=== PATIENT | female | born 1950 | race Caucasian/White ===

== ENCOUNTER → 2019-12-18 | Outpatient (CLI) | payer MEDICARE, OTHER | END | disposition home or self-care (01) | LOC: LAB SHORT 14:09 → PLD 14:09 | DX: D07.1 Carcinoma in situ of vulva (principal) | CPT/HCPCS: 88305 ==

== ENCOUNTER 2020-03-17 09:08 | Day surgery (SDC) | payer MEDICARE, OTHER ==
[~2020-03-17] VITALS: Ht 157 cm; Wt 66.8 kg
[2020-03-17] MEDS ORDERED: METO100ER PO (09:53)
[2020-03-17] MEDS ORDERED: ATOR80 PO (09:53)
[2020-03-17] MEDS ORDERED: NITRO-DUR1 EAC1 TOP (09:56)
[2020-03-17] MEDS ORDERED: CALCIUM 600 +1 EA11 PO (09:56)
[2020-03-17] MEDS ORDERED: COQ-10100 MG (09:57)
[2020-03-17] MEDS ORDERED: FISH OIL 1,2001 EACH PO (09:58)
[2020-03-17] MEDS ORDERED: IBUP600 PO (09:58)
[2020-03-17] MEDS ORDERED: ZYRTEC10 M1 PO (09:59)
[2020-03-17] MEDS ORDERED: OMEP20ER PO (09:59)
[2020-03-17] MEDS ORDERED: ASPI81CH PO (09:59)
[2020-03-17] MEDS ORDERED: ZINC15 PO (10:00)
--- NOTE | 2020-03-17 12:50 | NUR ---
Patient up to Ambulate independently. Gait steady. Discharge instructions reviewed with patient. Patient verbalizes understanding. Copy given to patient to take home. Patient States Post-Procedure ride home has been arranged. Discharged via wheelchair to private car for ride home. PT TOLERATING PO, VOIDING. SCRIPTS AND PAPERWORK SENT WITH PT WELL PT'S BELONGINGS. PT SENT WITH MIRIAM BOTTLE AND PADS PER ORDER.
== END 2020-03-17 22:46 | disposition home or self-care (01) ==
LOC: ORSCMMR 09:08 → ORD 10:30 → ORSCMMR 10:30
PROVIDERS: Obstetrics & Gynecology
PROC: 0UBM0ZZ Excision of Vulva, Open Approach (ICD-10-PCS; principal; 2020-03-17 10:30)
DX: D07.1 Carcinoma in situ of vulva (principal); I10 Essential (primary) hypertension; I25.10 Atherosclerotic heart disease of native coronary artery without angina pectoris; E78.5 Hyperlipidemia, unspecified; Z87.891 Personal history of nicotine dependence; Z79.899 Other long term (current) drug therapy; Z79.82 Long term (current) use of aspirin
CPT/HCPCS: 88305; J1100; J2250; J2370; J2405; J2704; J3010; J7120

== ENCOUNTER → 2023-09-13 | Outpatient (CLI) | payer MEDICARE ==
[~2023-09-13] MED LIST: ASPI81CH PO; ATOR80 PO; CALCIUM 600 +1 EA11 PO; COQ-10100 MG; FISH OIL 1,2001 EACH PO; IBUP600 PO; METO100ER PO; NITRO-DUR1 EAC1 TOP; OMEP20ER PO; ZINC15 PO; ZYRTEC10 M1 PO
[2023-09-14 14:56] LABS: Stool Occult Bld Immuno 1 Negative (NEGATIVE)
== END | disposition home or self-care (01) ==
LOC: LAB SHORT 09:00 → LAB 09:00
PROVIDERS: Internal Medicine
DX: K59.00 Constipation, unspecified (principal)
CPT/HCPCS: 82274